=== PATIENT | male | born 1985 | race Caucasian/White ===

== ENCOUNTER 2025-05-01 23:39 | Emergency (ER) | payer MEDICAID ==
[2025-05-01] MEDS ORDERED: Sodium Chloride 0.9% 10 ML Syringe FLUSH PRN (23:54)
[2025-05-02] MEDS: Ondansetron 4 MG/2 ML SDV IVPUSH ONE (00:12)
[2025-05-02 00:13] LABS: BASOPHILS ABSOLUTE AUTO 0.1 K/mm3 (0.0-0.2); BASOPHILS PERCENT AUTO 0.4 % (0.0-1.0); EOSINOPHILS ABSOLUTE AUTO 0.0 K/mm3 (0.0-0.4); EOSINOPHILS PERCENT AUTO 0.1 % (0.0-6.0); IMMATURE GRAN ABSOLUTE AUTO 0.05 K/mm3 (0.00-0.05); IMMATURE GRAN PERCENT AUTO 0.4 % (0.0-0.4); LYMPHOCYTES ABSOLUTE AUTO 2.9 K/mm3 (1.0-4.8); LYMPHOCYTES PERCENT AUTO 20.6 % (24.0-44.0); MEAN PLATELET VOLUME 9.7 fl (9.4-12.4); MONOCYTES ABSOLUTE AUTO 1.4 K/mm3 (0.0-0.8); MONOCYTES PERCENT AUTO 9.7 % (0.0-8.0); NEUTROPHILS ABSOLUTE AUTO 9.8 K/mm3 (1.8-7.7); NEUTROPHILS PERCENT AUTO 68.8 % (41.0-71.0); NRBC ABSOLUTE 0.00 (0.00-0.02); NRBC PERCENT 0.0 % (0.0-0.2); PLATELET COUNT,PLT 319 K/mm3 (150-400); RED BLOOD CELL COUNT 5.81 M/mm3 (4.52-5.90); WHITE BLOOD CELL COUNT,WBC 14.18 K/mm3 (3.9-11.3)
[2025-05-02 00:37] LABS: A/G RATIO 1.6 (1-2); ALANINE AMINOTRANSFERASE,ALT 54.0 U/L (16-63); ASPARTATE AMNIOTRANSFERASE,AST 23.0 U/L (15-37); BILIRUBIN TOTAL 1.1 mg/dL (0.2-1.0); BLOOD UREA NITROGEN,BUN 19.0 mg/dL (7-18); CARBON DIOXIDE,CO2 25.0 mEq/L (21-32); CHLORIDE,CL 102.0 mEq/L (98-107); CREATININE 1.2 mg/dL (0.7-1.3); EST CRCL DRUG DOSING (CG) 86.18 mL/min; ESTIMATED GFR 79.0 mL/min (>60); GLUCOSE RANDOM 105.0 mg/dL (70-99); PHOSPHORUS 2.9 mg/dL (2.6-4.7); POTASSIUM,K 3.5 mEq/L (3.5-5.1); PROTEIN TOTAL,TP 8.0 g/dl (6.4-8.2); SODIUM,NA 140.0 mEq/L (136-145); TROPONIN I HIGH SENSITIVITY 7.0 pg/mL (<=76)
[2025-05-02] MEDS: Ketorolac 30 MG/ML SDV IVPUSH ONE (00:55)
[2025-05-02 01:28] LABS: APPEARANCE,URINE CLEAR (Clear); GLUCOSE,URINE NEGATIVE (Negative); OCCULT BLOOD,URINE TRACE-INTACT (Negative)
[2025-05-02 01:35] LABS: EPITHELIAL CELLS,URINE 0-5 /hpf (0-5)
[2025-05-02 01:36] LABS: BUPRENORPHINE SCREEN,URINE NEGATIVE (CUTOFF=10); METHADONE SCREEN, URINE NEGATIVE (CUT0FF=200); METHAMPHETAMINES SCREEN, URINE NEGATIVE (CUTOFF=500); OXYCODONE SCREEN,URINE NEGATIVE (CUT0FF=100); THC SCREEN,URINE 20 NG/ML NEGATIVE (CUTOFF=50)
[2025-05-02 01:38] LABS: AMPHETAMINES SCREEN, URINE NEGATIVE (CUTOFF=500)
== END 2025-05-02 02:17 ==
LOC: JD.ED 23:39
DX: F19.230 Other psychoactive substance dependence with withdrawal, uncomplicated (principal); Z79.899 Other long term (current) drug therapy
CPT/HCPCS: 36415; 71045; 80053; 80306; 81001; 83605; 83735; 84100; 84484; 85025; 93005; 96361; 96374; 96375; 99284; J1885; J2405; J7030